=== PATIENT | male | born 1955 | race Caucasian/White ===

== ENCOUNTER → 2023-06-30 | Outpatient (CLI) | payer MEDICARE ==
[~2023-06-30] MED LIST: CRESTOR5 MG PO; LANTUS100 U/ML SC; LOTREL 10 MG-401 CA1 PO; MIRALAX POWDER17 G1 PO; PREVACID30 MG PO; TRAD5TAB1 PO
== END | disposition home or self-care (01) ==
LOC: RESCLI 15:58
PROVIDERS: ATTEND Internal Medicine
DX: E11.9 Type 2 diabetes mellitus without complications (principal); I10 Essential (primary) hypertension; E78.5 Hyperlipidemia, unspecified; M19.90 Unspecified osteoarthritis, unspecified site; F32.9 Major depressive disorder, single episode, unspecified; Z79.84 Long term (current) use of oral hypoglycemic drugs; Z79.899 Other long term (current) drug therapy; Z98.890 Other specified postprocedural states

== ENCOUNTER → 2024-07-04 | Outpatient (CLI) | payer MEDICARE | END | disposition home or self-care (01) | LOC: RESCLI 01:27 | PROVIDERS: ATTEND Internal Medicine | DX: F32.9 Major depressive disorder, single episode, unspecified (principal); E11.9 Type 2 diabetes mellitus without complications; E78.5 Hyperlipidemia, unspecified; I10 Essential (primary) hypertension; M19.90 Unspecified osteoarthritis, unspecified site; Z79.899 Other long term (current) drug therapy; Z98.890 Other specified postprocedural states ==